=== PATIENT | male | born 2000 | race Caucasian/White ===

== ENCOUNTER 2018-06-08 17:32 | Emergency (ER) | payer OTHER ==
--- NOTE | 2018-06-08 18:12 | EDPHY ---
H & P Stated Complaint: RLQ pain Time Seen by Provider: 06/08/18 17:47 HPI/ROS: CHIEF COMPLAINT: Right lower quadrant pain HISTORY OF PRESENT ILLNESS: 18-year-old male presents with right lower quadrant pain. Onset of abdominal pain 1 week ago. The pain has been moderate and intermittent. The pain increases with movement and positioning and is alleviated with rest. No fever, anorexia or other associated symptoms. Sent here for CT scan by PCP. REVIEW OF SYSTEMS: complete 10 point ROS reviewed and is negative except for the noted elements in the HPI - Medical/Surgical History Hx Asthma: No Hx Chronic Respiratory Disease: No Hx Diabetes: No Hx Cardiac Disease: No Hx Renal Disease: No Hx Cirrhosis: No Hx Alcoholism: No Hx HIV/AIDS: No Hx Splenectomy or Spleen Trauma: No Other PMH: denies - Social History Smoking Status: Light smoker Alcohol Use: Sober - Physical Exam Exam: General Appearance: Alert, pleasant Eyes: Pupils equal and round, no conjunctival pallor ENT, Mouth: Mucous membranes moist Neck: Normal inspection Respiratory: Lungs are clear to auscultation Cardiovascular: Regular rate and rhythm Gastrointestinal: Abdomen is soft, right lower quadrant tenderness Neurological: A&O, nonfocal, normal gait Skin: Warm and dry, no rash Extremities: Normal inspection Psychiatric: Mood and affect normal Constitutional: Initial Vital Signs Temperature (C) 37.0 C 06/08/18 17:35 Heart Rate 99 06/08/18 17:35 Respiratory Rate 18 06/08/18 17:35 Blood Pressure 140/95 H 06/08/18 17:35 O2 Sat (%) 97 06/08/18 17:35 O2 Delivery Mode Room Air Allergies/Adverse Reactions: amoxicillin Allergy (Verified 06/08/18 17:37) cefdinir Allergy (Verified 06/08/18 17:37) clavulanic acid Allergy (Verified 06/08/18 17:37) Penicillins Allergy (Verified 06/08/18 17:35) Home Medications: Medication Instructions Recorded NK [No Known Home Meds] 06/08/18 Medical Decision Making ED Course/Re-evaluation: CT scan of the abdomen pelvis read by the radiologist reveals constipation, no evidence of inflammation in the right lower quadrant, though the appendix is not clearly visualized. Given no fever, no leukocytosis and no systemic symptoms, I doubt this patient has appendicitis. Magnesium citrate given prior to discharge. Abdominal exam remains benign. Warning signs discussed. Differential Diagnosis: Differential diagnosis includes though it is not limited to appendicitis, cholecystitis, diverticulitis, pyelonephritis, bowel perforation, small bowel obstruction. - Data Points Laboratory Results: Laboratory Results 06/08/18 18:13 Medications Given: Discontinued Medications Magnesium Citrate (Magnesium Citrate) 300 ml PO EDNOW ONE Stop: 06/08/18 19:50 Last Admin: 06/08/18 20:02 Dose: 300 ml Point of Care Test Results: Chemistry 06/08/18 18:47 POC Sodium 142 mEq/L mEq/L (135-145) POC Potassium 3.6 mEq/L mEq/L (3.3-5.0) POC Chloride 105 mEq/L mEq/L (97-110) POC BUN 13 mg/dL mg/dL (7-23) POC Creatinine 0.7 mg/dL mg/dL (0.7-1.3) POC Glucose 85 mg/dL mg/dL (70-100) ISTAT H&H 06/08/18 18:47 POC Hgb 15.0 gm/dL gm/dL (13.7-17.5) POC Hct 44 % % (40-51) Departure - Departure Disposition: Home, Routine, Self-Care Clinical Impression: Abdominal pain Qualifiers: Abdominal location: right lower quadrant Qualified Code(s): R10.31 - Right lower quadrant pain Constipation Qualifiers: Constipation type: unspecified constipation type Qualified Code(s): K59.00 - Constipation, unspecified Condition: Good Instructions: Constipation (ED), High Fiber Diet (ED), Acute Abdominal Pain (ED ) Additional Instructions: Sometimes we are unable to diagnose an obvious cause of abdominal pain in the Emergency Department. Based upon our evaluation today, we see no obvious explanation for your pain. Because more serious conditions can be difficult to diagnose early in the course of their presentation, we ask that you return to the Emergency Department in 12-24 hours for a recheck if you are still having pain. This is necessary to exclude the development of a more serious condition such as appendicitis or other intra-abdominal emergency. In the event your pain markedly increases before that time or you develop intractable vomiting or fever return to the Emergency Department immediately. Referrals: Jackie Argueta MD [Medical Doctor] - As per Instructions
[2018-06-08 18:25] LABS: PLATELET COUNT 219 10^3/uL (150-400)
[2018-06-08] MEDS ORDERED: IOPAMIDOL (ISOVUE-300) 100 ML BTL ONE (18:35)
[2018-06-08] MEDS ORDERED: MAGNESIUM CITRATE 300 ML BOTTLE PO ONE (19:49)
[2018-06-08 20:08] VITALS: BP 134/70
== END 2018-06-08 20:06 | disposition home or self-care (01) ==
DX: R10.31 Right lower quadrant pain (principal); K59.00 Constipation, unspecified
CPT/HCPCS: 82435-PO; 82565-PO; 82947-PO; 84132-PO; 84295-PO; 84520-PO; 85014-PO; Q9967

== ENCOUNTER → 2019-01-11 | Outpatient (CLI) | payer OTHER | LOC: FIMAGING 13:41 | PROVIDERS: ATTEND Family Medicine | DX: N50.3 Cyst of epididymis (principal) ==